=== PATIENT | female | born 1960 | race Caucasian/White ===

== ENCOUNTER → 2019-10-08 09:41 | Outpatient (CLI) | payer OTHER, SELFPAY ==
--- NOTE | ~2019-10-08 | MM_ITS ---
EXAMINATION: MM diagnostic [facility] HISTORY: Inflammatory disorder of breast. Red pea-sized lump of right breast at approximately 11:00. TECHNIQUE: 3-D tomosynthesis images of both breasts were performed and synthetic 2-D images were gene rated. Compression right cc view. Rolled medial and rolled lateral cc views. CAD analysis was submitt ed and interpreted. COMPARISON: 05/26/2016 bilateral digital screening mammogram BREAST PARENCHYMAL COMPOSITION: There are scattered areas of fibroglandular density. FINDINGS: No suspicious mass, architectural distortion, malignant calcification, skin thickening or r etraction of either breast is detected. IMPRESSION: 1. No mammographic evidence of malignancy 2. Routine mammographic screening is recommended. BI-RADS Category 1: Negative Reviewed, dictated and finalized at location A.
== END ==
PROVIDERS: Visit Provider Advanced Practice Midwife
DX: N61.0 Mastitis without abscess (principal)
CPT/HCPCS: 77062; 77066; G0279

== ENCOUNTER 2021-03-11 01:38 | Day surgery (SDC) | payer OTHER, SELFPAY ==
[2021-02-25 10:30] VITALS: BMI 35.1
--- NOTE | 2021-03-10 13:01 | PM.HPGS ---
History of Present Illness History of Present Illness Consent: Risks, benefits, and alternatives have been discussed and questions answered. Patient agrees to proceed with procedure. Chief complaint: hx of colon polyps Narrative: Radha Jones is a 60 year old female who was referred for colon cancer screening. She had a tubular adenoma removed 6 years ago. Review of Systems Review of Systems: All systems reviewed & are unremarkable except as noted in HPI and below PMFSH Surgical History Surgical History Hx of breast reduction, elective Hx of laparoscopic gastric banding Social History Social History Years smoked: 10 Living arrangements: alone Meds Home Medications and Allergies Home Medications Medication Instructions Recorded Confirmed Type ergocalciferol (vitamin D2) 50,000 unit PO WEEKLY 02/25/21 03/11/21 History Allergies Allergy/AdvReac Type Severity Reaction Status Date / Time No Known Allergies Allergy Verified 03/11/21 06:30 Exam Const: General: alert Orientation/consciousness: patient oriented x3 Resp: Auscultation: clear to auscultation bilaterally Cardio: Rhythm: regular rhythm GI: GI Palp: Yes Soft to palpation and No Tenderness to palpation present (GI) Neuro: General: patient oriented x3 Assessment and Plan Assessment and plan (1) Colon cancer screening: Code(s): Z12.11 - Encounter for screening for malignant neoplasm of colon Status: Acute Assessment and Plan: Colonoscopy with possible biopsy or polypectomy or cautery or injection of substances.
--- NOTE | 2021-03-10 13:23 | P.PNAN_ITS ---
Anes - Initial Pre Proc Eval Procedure: Operation Date: 03/11/21 07:30 Proposed Procedures p Screening Colonoscopy - Anatoly Diaz MD Date/Time: 03/10/21 13:23 Surgeon: Anatoly Diaz MD Pre Op Diagnosis: hx of colon polyps Patient Data Age: 60 Gender: F Height: 1.6 m Weight: 90 kg Allergies Allergy/AdvReac Type Severity Reaction Status Date / Time No Known Allergies Allergy Verified 03/11/21 06:30 Home Medications Medication Instructions Recorded Confirmed Type ergocalciferol (vitamin D2) 50,000 unit PO WEEKLY 02/25/21 03/11/21 History Patient hx anesthesia problems: none Family hx anesthesia problems: none Results Review: All pre-operative results and documents have been reviewed as part of the pre-operative evaluation. [facility] Surgical History Surgical History (Updated 03/10/21 @ 13:23 by Iain Arguello DO) Hx of breast reduction, elective Hx of laparoscopic gastric banding Social History Social History Years smoked: 10 Living arrangements: alone Anes - Eval Final PreProcedure Day of Procedure 03/10/21 13:23 Patient weight: obese Heart: regular rate and rhythm Lungs: clear to auscultation and normal air movement Airway: Mallampati scale class II Neurological: alert and oriented Last oral intake: >/= 8 hours ASA classification: II Emergent: no Anesthetic plan: proceed Anesthesia type and monitoring: general GIVS and standard monitoring Results Review: All pre-operative results and documents have been reviewed as part of the pre-operative evaluation. Informed Consent: The patient's anesthetic plan and its attendant risks and benefits were discussed with the patient/family/POA. Questions were solicited and answers provided to the satisfaction of the patient/family/POA.
[2021-03-11 06:20] VITALS: BP 145/100; PULSE 78; RESP 18; TEMP 36.9; O2SAT 98; BMI 33.3
[2021-03-11] MEDS: LACTATED RINGERS 1,000 ML 150 ML IV CONT (06:48)
[2021-03-11 07:43] VITALS: BP 114/75; PULSE 76; RESP 22; O2SAT 97
[2021-03-11 07:53] VITALS: BP 136/88; PULSE 77; RESP 20; O2SAT 96
[2021-03-11 08:03] VITALS: BP 141/98; PULSE 60; RESP 21; O2SAT 99
== END 2021-03-11 08:10 | disposition home or self-care (01) ==
PROVIDERS: PCP Advanced Practice Midwife; Visit Provider Internal Medicine Gastroenterology
PROC: 0DJD8ZZ Inspection of Lower Intestinal Tract, Via Natural or Artificial Opening Endoscopic (ICD-10-PCS; CPT 45378; principal; 2021-03-11 07:30)
DX: Z12.11 Encounter for screening for malignant neoplasm of colon (principal); K62.1 Rectal polyp; K57.30 Diverticulosis of large intestine without perforation or abscess without bleeding; Z98.84 Bariatric surgery status; E66.9 Obesity, unspecified; Z68.33 Body mass index [BMI] 33.0-33.9, adult
CPT/HCPCS: 45380; 88305; J2704; J7120

== ENCOUNTER → 2021-03-30 15:52 | Outpatient (CLI) | payer OTHER, SELFPAY ==
--- NOTE | ~2021-03-30 | DEXA_ITS ---
Bone Density Report Name: CURTIS ORTEGA Age: 60 Sex: Female Ethnicity: White Date of : 1960 Indication: postmenopausal; screening for osteoporosis; hysterectomy; Referring Provider: Mindy Martin Study: Bone densitometry was performed. Exam Date: March 30, 2021 Accession number: [id number] Bone Density: Region BMD T-score Z-score Classification AP Spine (L1-L4) 0.824 -2.0 -0.7 Osteopenia Femoral Neck (Left) 0.721 -1.2 0.0 Osteopenia Total Hip (Left) 0.822 -1.0 -0.1 Normal Femoral Neck (Right) 0.751 -0.9 0.3 Normal Total Hip (Right) 0.828 -0.9 -0.1 Normal Total Hip Mean 0.825 -1.0 -0.1 Normal World Health Organization criteria for BMD impression classify patients as: Normal (T-score at or above -1.0), Osteopenia (T-score between -1.0 and -2.5), or Osteoporosis (T-score at or below -2.5). 10-year Fracture Risk(1): Major Osteoporotic Fracture 6.3% Hip Fracture 0.3% Reported Risk Factors: [place] (), Neck BMD=0.721, BMI=35.0 (1) FRAX(R) Version 3.08. Fracture probability calculated for an untreated patient. Fracture probability may be lower if the patient has received treatment. Clinical Information Provided by Patient: Has used the following medications: Vitamin D Has the following medical conditions: Hysterectomy Patient maximum height was 62.7 Menopause Age: 47 No regular weight bearing exercise Drinks caffeinated beverages Onset of menses at age 15 Number of children 2 Impression: The patient has low bone mass, based on the Total Spine T-score. The patient has an estimated ten-year risk of hip fracture of 0.3% and an estimated ten-year risk of major fracture of 6.3%, based on the WHO FRAX algorithm. Discussion: BONE DENSITY IS LOW AT ONE OR MORE SKELETAL SITES. This patient's lowest T-score is low at one or more skeletal sites. It meets the World Health Organization's (WHO) criteria for ?low bone mass? (T-score between -1.0 and -2.5). The patient's 10-year risk of fracture as calculated by FRAX is less than the threshold where pharmacological therapy is recommended by the National Osteoporosis Foundation (NOF). However, all treatment decisions require clinical judgment and consideration of individual patient factors, including patient preferences, comorbidities, previous drug use, risk factors not captured in the FRAX model (e.g., frailty, falls, vitamin D deficiency, increased bone turnover, interval significant decline in bone density) and possible under or overestimation of fracture risk by FRAX. The patient should follow a healthful lifestyle (good nutrition with adequate calcium and vitamin D, and appropriate weight-bearing exercise). Follow-Up: Consider repeating this study in 2 to 3 years to reassess this patient's status, or sooner if there is some new clinical
--- NOTE | ~2021-03-30 | MM_ITS ---
EXAMINATION: MM screening [facility] BI w [facility] HISTORY: Screening mammogram TECHNIQUE: Craniocaudal and mediolateral oblique 3-D tomosynthesis images were obtained and synthetic 2-D images were generated. CAD analysis was submitted and interpreted. COMPARISON: 10/08/2019, 02/05/2018, 05/26/2016 BREAST PARENCHYMAL COMPOSITION: The breasts are almost entirely fatty. FINDINGS: There is no evidence of suspicious mass, calcification, or architectural distortion to sugg est malignancy in either breast. There has been no suspicious interval change. IMPRESSION: 1. No mammographic evidence of malignancy. 2. Recommend routine screening mammography in one year. BI-RADS Category 1: Negative Reviewed, dictated and finalized at location A. [employer] [employer]
== END ==
PROVIDERS: Visit Provider Advanced Practice Midwife
DX: M81.0 Age-related osteoporosis without current pathological fracture (principal); Z12.31 Encounter for screening mammogram for malignant neoplasm of breast; M85.89 Other specified disorders of bone density and structure, multiple sites
CPT/HCPCS: 77063; 77067; 77080

== ENCOUNTER → 2022-07-04 15:41 | Outpatient (CLI) | payer OTHER, SELFPAY ==
--- NOTE | ~2022-07-04 | MM_ITS ---
EXAMINATION: MM screening [facility] BI w [facility] HISTORY: Screening mammogram TECHNIQUE: Craniocaudal and mediolateral oblique 3-D tomosynthesis images were obtained and synthetic 2-D images were generated. CAD analysis was submitted and interpreted. COMPARISON: 03/30/2021, 10/08/2019, 02/05/2018 BREAST PARENCHYMAL COMPOSITION: There are scattered areas of fibroglandular density. FINDINGS: No suspicious mass, calcification, or architectural distortion are identified in either khoa ast to suggest malignancy. There has been no suspicious interval change. IMPRESSION: 1. No mammographic evidence of malignancy. 2. Recommend routine screening mammography in one year. BI-RADS Category 1: Negative Reviewed, dictated and finalized at location A.
== END ==
PROVIDERS: PCP Advanced Practice Midwife; Visit Provider Advanced Practice Midwife
DX: Z12.31 Encounter for screening mammogram for malignant neoplasm of breast (principal)
CPT/HCPCS: 77063; 77067

== ENCOUNTER 2023-10-15 15:34 | Outpatient (CLI) | payer OTHER, SELFPAY ==
--- NOTE | ~2023-10-15 | MM_ITS ---
EXAMINATION: MM screening [facility] w [facility] HISTORY: Screening TECHNIQUE: Craniocaudal and mediolateral oblique 3-D tomosynthesis images were obtained and synthetic 2-D images were generated. CAD analysis was submitted and interpreted. COMPARISON: Comparison to multiple prior studies sequentially, with oldest reviewed study dated 08/2016. BREAST PARENCHYMAL COMPOSITION: Not dense: There are scattered areas of fibroglandular density. FINDINGS: There is no evidence of suspicious mass, calcification, or architectural distortion to sugg est malignancy in either breast. There has been no suspicious interval change. IMPRESSION: 1. No mammographic evidence of malignancy. 2. Recommend routine screening mammography in one year. BI-RADS Category 1: Negative Reviewed, dictated and finalized at location B.
== END 2023-10-15 15:35 ==
LOC: MICIMG 15:35
PROVIDERS: PCP Family Medicine; Visit Provider Family Medicine
DX: Z12.31 Encounter for screening mammogram for malignant neoplasm of breast (principal)
CPT/HCPCS: 77063; 77067

== ENCOUNTER 2024-10-16 15:23 | Outpatient (CLI) | payer OTHER, SELFPAY ==
--- NOTE | ~2024-10-16 | MM_ITS ---
EXAMINATION: MM screening [facility] HISTORY: Screening TECHNIQUE: Craniocaudal and mediolateral oblique 3-D tomosynthesis images were obtained and synthetic 2-D images were generated. CAD analysis was submitted and interpreted. COMPARISON: Comparison to multiple prior studies sequentially, with oldest reviewed study dated , 05/26/2016 BREAST PARENCHYMAL COMPOSITION: There are scattered areas of fibroglandular density. FINDINGS: There is no evidence of suspicious mass, calcification, or architectural distortion to suggest malignancy in either breast. IMPRESSION: 1. No mammographic evidence of malignancy. 2. Recommend routine screening mammography in one year. BI-RADS Category 1: Negative Reviewed, dictated and finalized at location B.
== END 2024-10-16 15:24 | disposition home or self-care (01) ==
LOC: MICIMG 15:24
PROVIDERS: PCP Obstetrics & Gynecology; Visit Provider Family Medicine
DX: Z12.31 Encounter for screening mammogram for malignant neoplasm of breast (principal)
CPT/HCPCS: 77063; 77067